=== PATIENT | male | born 1965 | race Caucasian/White ===

== ENCOUNTER 2018-02-05 18:39 | Observation (INO) | payer OTHER ==
[2018-02-05 19:03] VITALS: BMI 35.5
--- NOTE | 2018-02-05 20:28 | ED PDOC ---
Arrival/HPI <Jonathan Phan - Last Filed: 02/05/18 23:06> - General Historian: Patient <Caron Clark - Last Filed: 02/06/18 02:03> - General Chief Complaint: ENT Problem Time Seen by Provider: 02/05/18 19:21 - History of Present Illness Narrative History of Present Illness (Text): 02/05/18 20:22 52yr old male presents today with feeling like something is stuck on his throat since monday after eating fish. pt states he feels as though something is blocking the throat. pt states if he tries to eat it feels as if the food gets stuck while swallowing and then eventually goes down. pt states similar symptoms occur with fluids. no dizziness or weakness. no fever/chills. no abdominal pain. no other complaints. (Caron Clark) Past Medical History - Provider Review Nursing Documentation Reviewed: Yes - Travel History Have you recently traveled outside [place] w/in the past 3 mons?: No - Tetanus Immunization Tetanus Immunization: Unknown - Cardiac Hx Cardiac Disorders: No - Pulmonary Hx Respiratory Disorders: No - Neurological Hx Neurological Disorder: No - HEENT Hx HEENT Disorder: No - Renal Hx Renal Disorder: No - Endocrine/Metabolic Hx Endocrine Disorders: No - Hematological/Oncological Hx Blood Disorders: No - Integumentary Hx Dermatological Disorder: No - Musculoskeletal/Rheumatological Hx Musculoskeletal Disorders: No - Gastrointestinal Hx Gastrointestinal Disorders: No - Genitourinary/Gynecological Hx Genitourinary Disorders: No - Psychiatric Hx Psychophysiologic Disorder: No Hx Substance Use: No <Caron Clark - Last Filed: 02/06/18 02:03> Family/Social History - Physician Review Nursing Documentation Reviewed: Yes Family/Social History: Unknown Family HX Smoking Status: Never Smoked Hx Alcohol Use: No Hx Substance Use: No <Caron Clark - Last Filed: 02/06/18 02:03> Allergies/Home Meds <Jonathan Phan - Last Filed: 02/05/18 23:06> <Caron Clark - Last Filed: 02/06/18 02:03> Allergies/Adverse Reactions: Allergies No Known Allergies Allergy (Verified 02/05/18 19:02) Home Medications: Home Meds Medication Instructions Recorded Confirmed No Known Home Med 02/05/18 02/05/18 Review of Systems - Review of Systems Constitutional: absent: Fatigue, Fevers Respiratory: absent: SOB, Cough Cardiovascular: absent: Palpitations, Syncope Gastrointestinal: absent: Abdominal Pain, Constipation, Diarrhea, Nausea, Vomiting Genitourinary Male: absent: Dysuria, Frequency, Hematuria Musculoskeletal: absent: Arthralgias Skin: absent: Rash, Pruritis Neurological: absent: Headache, Dizziness Psychiatric: absent: Anxiety, Depression, Suicidal Ideation <Caron Clark - Last Filed: 02/06/18 02:03> Physical Exam Vital Signs Reviewed: Yes Temperature: Afebrile Blood Pressure: Hypertensive Pulse: Regular Respiratory Rate: Normal Appearance: Positive for: Well-Appearing, Non-Toxic, Comfortable Pain Distress: None Mental Status: Positive for: Alert and Oriented X 3 - Systems Exam Head: Present: Atraumatic Mouth: Present: Moist Mucous Membranes, Normal Lips, Normal Tounge. No: Drooling, Trismus Pharnyx: Present: Normal. No: ERYTHEMA, EXUDATE, TONSILS ENLARGED, Peritonsilar Swelling, Uvular Deviation, Muffled/Hoarse Voice Nose (External): Present: Atraumatic Nose (Internal): Present: Normal Inspection Neck: Present: Normal Range of Motion, Trachea Midline. No: Lymphadenopathy Respiratory/Chest: Present: Clear to Auscultation, Good Air Exchange. No: Respiratory Distress, Accessory Muscle Use Cardiovascular: Present: Regular Rate and Rhythm, Normal S1, S2. No: Murmurs Abdomen: No: Tenderness, Rebound, Guarding Skin: Present: Warm, Dry, Normal Color. No: Rashes Psychiatric: Present: Alert, Oriented x 3 <Caron Clark - Last Filed: 02/06/18 02:03> Vital Signs Temp Pulse Resp BP Pulse Ox 02/06/18 01:46 98.3 F 65 18 138/77 100 02/05/18 23:00 80 18 142/87 100 02/05/18 19:03 97.9 F 73 19 159/90 H 98 02/05/18 19:02 97.9 F 76 19 159/90 H 98 Medical Decision Making <Jonathan Phan - Last Filed: 02/05/18 23:06> <Caron Clark - Last Filed: 02/06/18 02:03> ED Course and Treatment: 02/05/18 20:25 52yr old male with Foreign body sensation and dysphagia pt tolerating his secretions; no distress. stable vitals. will do ct of neck; ct soft tissue neck: FINDINGS: Nasopharynx: There is prominence of the adenoids within the posterior nasopharynx. Oropharynx: Calcifications identified within the bilateral palatine tonsils. There is narrowing of the airway at this level, without significant swelling of the palatine tonsils. No peritonsillar abscess is visualized. Hypopharynx: There is effacement of the bilateral piriform sinuses, with mild wall thickening on the right side. This may be inflammatory, although additional pathology cannot be excluded. Larynx: Normal epiglottis. Trachea: There is deviation of the trachea to the right. Retropharyngeal space: No acute abnormality. Submandibular/parotid glands: Glands are normal in size. Thyroid: No enlarged or calcified nodules. Bones/joints: There is decreased aeration of the bilateral vallecula, with hypertrophic changes involving the lingual tonsils. There is a mild decrease in height of the C6 vertebral body, consistent with a compression fracture. The acuity of this finding is indeterminate. There is straightening of the lordotic curvature of the cervical spine. Spondylosis is identified at multiple cervical levels. There is mild anterolisthesis of C7 on T1. Vasculature: Mild atherosclerotic changes. Lymph nodes: Small menisci lymph nodes are identified, without significant mediastinal lymphadenopathy. The mediastinum is incompletely visualized. Mildly enlarged level II cervical lymph nodes are visualized bilaterally. On the right side, this measures 1.5 x 0.9 cm. Additional small cervical lymph nodes are visualized. Sinuses: There is mucosal thickening with a mucous retention cyst or polyp in the right sphenoid sinus and left frontal sinus. Mucosal thickening is identified of the right frontal sinus. There is opacification of ethmoid air cells bilaterally. Mucosal thickening is identified of the bilateral maxillary sinuses, with a mucous retention cyst or polyp in the right maxillary sinus. Lung apices: Mild patchy groundglass density is identified within the visualized lungs bilaterally. Other: No hyperdense foreign body is identified within the visualized airway. IMPRESSION: 1. There is decreased aeration of the bilateral vallecula, with hypertrophic changes involving the lingual tonsils. 2. Calcifications identified within the bilateral palatine tonsils. There is narrowing of the airway at this level. 3. There is effacement of the bilateral piriform sinuses, with mild wall thickening on the right side. This may be inflammatory, although additional pathology cannot be excluded. This can be further evaluated with upper endoscopy. 4. There is deviation of the trachea to the right. 5. There is prominence of the adenoids within the posterior nasopharynx. 6. Paranasal sinus disease is noted above. 7. There is a mild decrease in height of the C6 vertebral body, consistent with a compression fracture. The acuity of this finding is indeterminate. Clinical correlation is recommended. 8. Mildly enlarged level II cervical lymph nodes are visualized bilaterally. 9. Incidental/non-acute findings are described above. pt was seen and evaluated by ENT dr. bella in the ER: he advised CT of chest with IV contrast and to include up to the level of the thyroid with IV contrast for evaluation of tracheal deviation on CT with dysphasia and GI and pulm consult. ct chest with IV contrast ordered; I spoke with cable technician to do ct of chest but scan slightly higher to include the thyroid/clavicle per dr. bellas request. ct chest; 02/06/18 01:46 FINDINGS: Nasopharynx: The nasopharynx is incompletely visualized. Oropharynx: There are calcifications within the bilateral palatine tonsils, without significant narrowing of the airway. This is an improvement compared to the prior study. No significant swelling of the palatine tonsils. No peritonsillar abscess. Mild hypertrophic changes are visualized of the lingual tonsils, without effacement of the valleculae. There is improved aeration of the valleculae compared to the prior study. Hypopharynx: There is effacement of the bilateral piriform sinuses. Larynx: Normal epiglottis. Trachea: No acute abnormality. Retropharyngeal space: No acute abnormality. Submandibular/parotid glands: Glands are normal in size. Thyroid: No enlarged or calcified nodules. Bones/joints: There is a mild decrease in height of the C6 vertebral body, consistent with a compression fracture. The acuity of this finding is indeterminate. Spondylosis is visualized at multiple cervical levels. There is mild reversal of the lordotic curvature of the cervical spine. Vasculature: There is atherosclerotic calcification of the extracranial carotid arteries. Lymph nodes: Mild enlarged level II cervical lymph nodes are seen bilaterally, nonspecific as to etiology. Sinuses: There is opacification of the visualized maxillary sinuses. Lung apices: Unremarkable as visualized. IMPRESSION: 1. There are calcifications is within the bilateral palatine tonsils, without significant narrowing of the airway. This is an improvement compared to the prior study. 2. Mild enlarged level II cervical lymph nodes are seen bilaterally, nonspecific as to etiology. 3. Mild hypertrophic changes are visualized of the lingual tonsils, without effacement of the valleculae. There is improved aeration of the valleculae compared to the prior study. 4. There is a mild decrease in height of the C6 vertebral body, consistent with a compression fracture. The acuity of this finding is indeterminate. Clinical correlation is recommended. 5. Additional CT findings described above. CT Chest With Intravenous Contrast FINDINGS: Lungs: There is no confluent infiltrate. No lung mass or dominant lung nodule is visualized. The lung bases extend out of the [id number] of this study. Pleural space: No pneumothorax. No significant effusion. Heart: A small amount of fluid is in the superior pericardial recess. Bones/joints: Hypertrophic degenerative changes are noted within the spine. Soft tissues: There is right-sided gynecomastia. Vasculature: No thoracic aortic aneurysm. Lymph nodes: Small mediastinal lymph nodes are visualized, without significant lymphadenopathy. IMPRESSION: 1. There is no confluent infiltrate. 2. Small mediastinal lymph nodes are visualized, without significant lymphadenopathy. 3. Incidental/non-acute findings are described above. 02/06/18 01:57 case was discussed with dr. Mathew in depth; pt is to be kept NPO and will have endoscopy in the AM. case discussed with dr. Kvng Rojas; accepts admission All results were discussed in depth with the patient. Patient was advised to remain without food or drink until evaluation by the GI specialist in the morning. all aspects of this case were discussed the attending of record. impression: dyphasia, abnormal ct of neck admit to med/surg with GI consult. (Caron Clark) - Lab Interpretations Lab Results: 02/05/18 22:20 02/05/18 22:15 Lab Results 02/05/18 22:20: WBC 10.3, RBC 4.76, Hgb 14.9, Hct 43.6, MCV 91.6, MCH 31.3, MCHC 34.2, RDW 12.6, Plt Count 291, MPV 11.0, Gran % 50.9, Lymph % (Auto) 35.2 H , Ashley % (Auto) 9.6 H, Eos % (Auto) 3.4, Baso % (Auto) 0.9, Gran # 5.22, Lymph # (Auto) 3.6 H, Ashley # (Auto) 1.0 H, Eos # (Auto) 0.4, Baso # (Auto) 0.09 02/05/18 22:20: PT 10.6, INR 0.93, APTT 29.3 02/05/18 22:15: Sodium 143, Potassium 4.2, Chloride 106, Carbon Dioxide 29, Anion Gap 12, BUN 20, Creatinine 0.9, Est GFR ( Amer) > 60, Est GFR (Non- Af Amer) > 60, Random Glucose 97, Calcium 9.5, Total Bilirubin 0.2, AST 23, ALT 33, Alkaline Phosphatase 67, Total Protein 6.8, Albumin 4.0, Globulin 2.9, Albumin/Globulin Ratio 1.4 - RAD Interpretation Radiology Orders: 02/05/18 19:43 NECK SOFT TISSUE W/O CONTRAST [CT] Stat 02/05/18 21:48 CHEST PORTABLE [RAD] Stat 02/05/18 23:17 NECK,CHEST WITH CONTRAST [CT] Stat - PA / SHIP MATE / Resident Statement / has reviewed & agrees with the documentation as recorded. / has examined the patient and agrees with the treatment plan. <Jonathan Phan - Last Filed: 02/05/18 23:06> Disposition/Present on Arrival <Jonathan Phan - Last Filed: 02/05/18 23:06> - Present on Arrival Any Indicators Present on Arrival: No History of DVT/PE: No History of Uncontrolled Diabetes: No Urinary Catheter: No History of Decub. Ulcer: No History Surgical Site Infection Following: None - Disposition Have Diagnosis and Disposition been Completed?: Yes Disposition Time: 02:00 Patient Plan: Observation <Caron Clark - Last Filed: 02/06/18 02:03> - Disposition Diagnosis: Dysphagia, Cervical compression fracture Disposition: HOSPITALIZED Patient Problems: Current Active Problems Problem Status Onset Cervical compression fracture Acute Dysphagia Acute Condition: FAIR Referrals: [facility], [Primary Care Provider] - Follow up with primary Forms: [employer] (Hungarian)
--- NOTE | 2018-02-05 21:36 | CT ---
EXAM: CT Neck Without Intravenous Contrast EXAM DATE/TIME: 02/05/2018 7:43 PM CLINICAL HISTORY: The patient age is 52 years old and is male; Signs and symptoms; Dysphagia / difficulty swallowing; Additional info: Fb sensation/ difficulty swallowing Facility exam id and description: Ct necks neck soft tissue w/o contrast TECHNIQUE: Axial computed tomography images of the neck without intravenous contrast. All CT scans at this facility use one or more dose reduction techniques, viz.: automated exposure control; ma/kV adjustment per patient size (including targeted exams where dose is matched to indication; i.e. head); or iterative reconstruction technique. Coronal and sagittal reformatted images were created and reviewed. COMPARISON: No relevant prior studies available. FINDINGS: Nasopharynx: There is prominence of the adenoids within the posterior nasopharynx. Oropharynx: Calcifications identified within the bilateral palatine tonsils. There is narrowing of the airway at this level, without significant swelling of the palatine tonsils. No peritonsillar abscess is visualized. Hypopharynx: There is effacement of the bilateral piriform sinuses, with mild wall thickening on the right side. This may be inflammatory, although additional pathology cannot be excluded. Larynx: Normal epiglottis. Trachea: There is deviation of the trachea to the right. Retropharyngeal space: No acute abnormality. Submandibular/parotid glands: Glands are normal in size. Thyroid: No enlarged or calcified nodules. Bones/joints: There is decreased aeration of the bilateral vallecula, with hypertrophic changes involving the lingual tonsils. There is a mild decrease in height of the C6 vertebral body, consistent with a compression fracture. The acuity of this finding is indeterminate. There is straightening of the lordotic curvature of the cervical spine. Spondylosis is identified at multiple cervical levels. There is mild anterolisthesis of C7 on T1. Vasculature: Mild atherosclerotic changes. Lymph nodes: Small menisci lymph nodes are identified, without significant mediastinal lymphadenopathy. The mediastinum is incompletely visualized. Mildly enlarged level II cervical lymph nodes are visualized bilaterally. On the right side, this measures 1.5 x 0.9 cm. Additional small cervical lymph nodes are visualized. Sinuses: There is mucosal thickening with a mucous retention cyst or polyp in the right sphenoid sinus and left frontal sinus. Mucosal thickening is identified of the right frontal sinus. There is opacification of ethmoid air cells bilaterally. Mucosal thickening is identified of the bilateral maxillary sinuses, with a mucous retention cyst or polyp in the right maxillary sinus. Lung apices: Mild patchy groundglass density is identified within the visualized lungs bilaterally. Other: No hyperdense foreign body is identified within the visualized airway. IMPRESSION: 1. There is decreased aeration of the bilateral vallecula, with hypertrophic changes involving the lingual tonsils. 2. Calcifications identified within the bilateral palatine tonsils. There is narrowing of the airway at this level. 3. There is effacement of the bilateral piriform sinuses, with mild wall thickening on the right side. This may be inflammatory, although additional pathology cannot be excluded. This can be further evaluated with upper endoscopy. 4. There is deviation of the trachea to the right. 5. There is prominence of the adenoids within the posterior nasopharynx. 6. Paranasal sinus disease is noted above. 7. There is a mild decrease in height of the C6 vertebral body, consistent with a compression fracture. The acuity of this finding is indeterminate. Clinical correlation is recommended. 8. Mildly enlarged level II cervical lymph nodes are visualized bilaterally. 9. Incidental/non-acute findings are described above.
[2018-02-05 22:37] LABS: BASO # 0.09 K/mm3 (0.0-2.0); BASO % 0.9 % (0.0-3.0); EOS # 0.4 (0.0-0.7); EOS % 3.4 % (1.5-5.0); GRAN # 5.22 (1.4-6.5); GRAN % 50.9 % (50.0-68.0); HEMOGLOBIN 14.9 g/dL (14.0-18.0); LYMPH # 3.6 (1.2-3.4); LYMPH % 35.2 % (22.0-35.0); MEAN CELL VOLUME 91.6 fl (80.0-105.0); MEAN CORPUSCULAR HEMOGLOBIN 31.3 pg (25.0-35.0); MEAN CORPUSCULAR HGB CONC 34.2 g/dl (31.0-37.0); MONO % 9.6 % (1.0-6.0); RBC 4.76 10^6/uL (3.5-6.1); RED CELL DISTRIBUTION WIDTH 12.6 % (11.5-14.5); WHITE BLOOD COUNT 10.3 10^3/ul (4.5-11.0)
[2018-02-05 22:41] LABS: ALB/GLOB RATIO 1.4 (1.1-1.8); ALT/SGPT 33 U/L (7-56); AST/SGOT 23 U/L (17-59); BLOOD UREA NITROGEN 20 mg/dL (7-21); CALCIUM 9.5 mg/dL (8.4-10.5); GFR AFRICAN-AMERICAN > 60; GFR NON-AFRICAN AMERICAN > 60
[2018-02-05 22:52] LABS: INR 0.93 (0.93-1.08); PARTIAL THROMBOPLASTIN TIME 29.3 Seconds (25.1-36.5); PROTHROMBIN TIME 10.6 SECONDS (9.4-12.5)
[2018-02-05] MEDS ORDERED: Iohexol 350 MG/100 ML VIAL ONE (23:25)
--- NOTE | 2018-02-06 01:02 | CT ---
EXAM: CT Neck With Intravenous Contrast CLINICAL HISTORY: The patient age is 52 years old and is male; Signs and symptoms; Other: Difficulty swallowing; Dysphagia / difficulty swallowing; Additional info: Difficulty swallowingtracheal deviation on neck CT Facility exam id and description: Ct neckchec neck, chest with contrast TECHNIQUE: Axial computed tomography images of the neck with intravenous contrast. All CT scans at this facility use one or more dose reduction techniques, viz.: automated exposure control; ma/kV adjustment per patient size (including targeted exams where dose is matched to indication; i.e. head); or iterative reconstruction technique. Coronal and sagittal reformatted images were created and reviewed. CONTRAST: 96 mL of OMNI 350 administered intravenously. COMPARISON: CT - NECK SOFT TISSUE W/O CONTRAST 2018-02-05 20:32 FINDINGS: Nasopharynx: The nasopharynx is incompletely visualized. Oropharynx: There are calcifications within the bilateral palatine tonsils, without significant narrowing of the airway. This is an improvement compared to the prior study. No significant swelling of the palatine tonsils. No peritonsillar abscess. Mild hypertrophic changes are visualized of the lingual tonsils, without effacement of the valleculae. There is improved aeration of the valleculae compared to the prior study. Hypopharynx: There is effacement of the bilateral piriform sinuses. Larynx: Normal epiglottis. Trachea: No acute abnormality. Retropharyngeal space: No acute abnormality. Submandibular/parotid glands: Glands are normal in size. Thyroid: No enlarged or calcified nodules. Bones/joints: There is a mild decrease in height of the C6 vertebral body, consistent with a compression fracture. The acuity of this finding is indeterminate. Spondylosis is visualized at multiple cervical levels. There is mild reversal of the lordotic curvature of the cervical spine. Vasculature: There is atherosclerotic calcification of the extracranial carotid arteries. Lymph nodes: Mild enlarged level II cervical lymph nodes are seen bilaterally, nonspecific as to etiology. Sinuses: There is opacification of the visualized maxillary sinuses. Lung apices: Unremarkable as visualized. IMPRESSION: 1. There are calcifications is within the bilateral palatine tonsils, without significant narrowing of the airway. This is an improvement compared to the prior study. 2. Mild enlarged level II cervical lymph nodes are seen bilaterally, nonspecific as to etiology. 3. Mild hypertrophic changes are visualized of the lingual tonsils, without effacement of the valleculae. There is improved aeration of the valleculae compared to the prior study. 4. There is a mild decrease in height of the C6 vertebral body, consistent with a compression fracture. The acuity of this finding is indeterminate. Clinical correlation is recommended. 5. Additional CT findings described above. EXAM: CT Chest With Intravenous Contrast EXAM DATE/TIME: 02/05/2018 11:17 PM CLINICAL HISTORY: The patient age is 52 years old and is male; Signs and symptoms; Other: Difficulty swallowing; Dysphagia / difficulty swallowing; Additional info: Difficulty swallowingtracheal deviation on neck CT Facility exam id and description: Ct neckchec neck, chest with contrast TECHNIQUE: Axial computed tomography images of the chest with intravenous contrast. All CT scans at this facility use one or more dose reduction techniques, viz.: automated exposure control; ma/kV adjustment per patient size (including targeted exams where dose is matched to indication; i.e. head); or iterative reconstruction technique. Coronal and sagittal reformatted images were created and reviewed. CONTRAST: 96 mL of OMNI 350 administered intravenously. COMPARISON: CT - NECK SOFT TISSUE W/O CONTRAST 2018-02-05 20:32 FINDINGS: Lungs: There is no confluent infiltrate. No lung mass or dominant lung nodule is visualized. The lung bases extend out of the [id number] of this study. Pleural space: No pneumothorax. No significant effusion. Heart: A small amount of fluid is in the superior pericardial recess. Bones/joints: Hypertrophic degenerative changes are noted within the spine. Soft tissues: There is right-sided gynecomastia. Vasculature: No thoracic aortic aneurysm. Lymph nodes: Small mediastinal lymph nodes are visualized, without significant lymphadenopathy. IMPRESSION: 1. There is no confluent infiltrate. 2. Small mediastinal lymph nodes are visualized, without significant lymphadenopathy. 3. Incidental/non-acute findings are described above.
[2018-02-06] MEDS ORDERED: Sodium Chloride 0.9% 1,000 ML IV SCH (02:30)
--- NOTE | 2018-02-06 02:40 | CP.PCM.HP ---
History of Present Illness - History of Present Illness History of Present Illness: Víctor Edgarguis PGY1 H&P Note for Hospitalist Service cc: trouble swallowing x4 days Mr. Brooks is a 52 yo Faroese male with a PMH of GERD and obesity who presents with a feeling of a lump in the back of the back of his throat when he eats and a feeling of the food/fluids going slowly down his throat until it's in his stomach. The patient states he is nauseous but has not vomited; he does complain of a cough and some shortness of breath. He states that his symptoms have been constant since Monday after eating fish, and have not progressed and that there's no difference between solid foods and liquids; he is also experiencing burping. He normally takes Zantac which has not helped, and nothing he noticed exacerbates it or improves it. The patient denies having an episode like this before, however, he does state that he has GERD and that he cannot eat too late in the night otherwise he experiences severe reflux. He also states that many years ago, he used to drink significant amounts of alcohol that caused him what seems like esophagitis and he could not tolerate anything more than water for several years. He has cut his drinking since then and has not had severe episodes like that since. The patient states that his mother from colon cancer which prompted him to have colonoscopy done in [place], but he's unsure of results. Patient denies recent weight loss, fevers/chills, recent illness, vomiting, bowel habit changes, chest pain, weakness, numbness/tingling in his extremities. 12-pt ROS was reviewed and is otherwise unremarkable. PMD: none PMH: as above PSH: none Meds: Zantac NKDA SHx: 0.5pk/day for many years, occasional ETOH, denies illicit substance use, lives w/ friend, unemployed FHx: mother: colon cancer Present on Admission - Present on Admission Any Indicators Present on Admission: No Review of Systems - Review of Systems All systems: reviewed and no additional remarkable complaints except (as per HPI ) Past Patient History - Tetanus Immunizations Tetanus Immunization: Unknown - Past Medical History & Family History Past Medical History?: Yes - Past Social History Smoking Status: Heavy Smoker > 10 Cigarettes Daily Alcohol: Occasional Drugs: Denies Home Situation {Lives}: Friends - CARDIAC Hx Cardiac Disorders: No - PULMONARY Hx Respiratory Disorders: No - NEUROLOGICAL Hx Neurological Disorder: No - HEENT Hx HEENT Problems: No - RENAL Hx Chronic Kidney Disease: No - ENDOCRINE/METABOLIC Hx Endocrine Disorders: No - HEMATOLOGICAL/ONCOLOGICAL Hx Blood Disorders: No - INTEGUMENTARY Hx Dermatological Problems: No - MUSCULOSKELETAL/RHEUMATOLOGICAL Hx Musculoskeletal Disorders: No - GASTROINTESTINAL Hx Gastritis: Yes Hx Gastroesophageal Reflux: Yes - GENITOURINARY/GYNECOLOGICAL Hx Genitourinary Disorders: No - PSYCHIATRIC Hx Psychophysiologic Disorder: No Hx Substance Use: No - SURGICAL HISTORY Hx Surgeries: No Meds Allergies/Adverse Reactions: Allergies Allergy/AdvReac Type Severity Reaction Status Date / Time No Known Allergies Allergy Verified 02/05/18 19:02 Physical Exam - Constitutional Appears: Well, Non-toxic, No Acute Distress - Head Exam Head Exam: ATRAUMATIC, NORMAL INSPECTION - Eye Exam Eye Exam: EOMI, Normal appearance, PERRL - ENT Exam ENT Exam: Mucous Membranes Moist, Normal Oropharynx Additional comments: no upper airway obstruction noted no pharyngeal mass noted no tonsil exudates or enlargement noted - Neck Exam Neck exam: Positive for: Normal Inspection. Negative for: Thyromegaly Additional comments: no strider noted on auscultation - Respiratory Exam Respiratory Exam: Clear to Auscultation Bilateral, NORMAL BREATHING PATTERN. absent: Rales, Rhonchi, Wheezes, Respiratory Distress, Stridor - Cardiovascular Exam Cardiovascular Exam: RRR, +S1, +S2. absent: JVD, Systolic Murmur - GI/Abdominal Exam GI & Abdominal Exam: Normal Bowel Sounds, Soft. absent: Distended, Tenderness Additional comments: obese - Extremities Exam Extremities exam: Positive for: full ROM, normal inspection. Negative for: pedal edema - Back Exam Back exam: NORMAL INSPECTION - Neurological Exam Neurological exam: Alert, CN II-XII Intact, Oriented x3 - Psychiatric Exam Psychiatric exam: Normal Affect, Normal Mood - Skin Skin Exam: Normal Color, Warm Results - Vital Signs Recent Vital Signs: Last Vital Signs Temp 98.3 F 02/06/18 01:46 Pulse 65 02/06/18 01:46 Resp 18 02/06/18 01:46 BP 138/77 02/06/18 01:46 Pulse Ox 100 02/06/18 01:46 - Labs Result Diagrams: 02/05/18 22:20 02/05/18 22:15 Assessment & Plan - Assessment and Plan (Free Text) Assessment: 52 yo Faroese male with a PMH of GERD (a/w alcohol-induced esophagitis) and obesity who presents with odynophagia and globus x4 days after having fish. Patient is in no respiratory distress currently. CT Neck showed some possible tracheal deviation, and patient was evaluated by ENT in ED, and recommended no immediate intervention. GI is consulted and recommending patient to be NPO for endoscopy in morning. Patient is otherwise stable. Plan: 1. Odynophagia likely 2/2 gastritis vs diabetic gastroparesis, r/o foreign body (fish bone) - CT neck showed hypertrophic changes involving the lingual tonsils, calcifications identified within the bilateral palatine tonsils with narrowing of the airway at this level. Effacement of the bilateral piriform sinuses, with mild wall thickening on the right side. There is deviation of the trachea to the right. There is prominence of the adenoids within the posterior nasopharynx. C6 compression fracture. - CT Chest/Neck as requested by ENT showed bilateral palatine tonsils, without significant narrowing of the airway. Mild enlarged level II cervical lymph nodes are seen bilaterally. Mild hypertrophic changes are visualized of the lingual tonsils. - patient not in any respiratory distress at this time - will keep patient NPO - IV PTX ordered - GI consulted, Dr. Mathew plans for morning EGD - vitamin B12, TSH and A1C ordered to evaluate for etiology - AM CXR ordered - NS 100 - aspiration precautions PTX/SCDs for GI/DVT ppx Patient was seen, examined and discussed with attending, Dr. Raghu Nelson PGY1
[2018-02-06 07:38] LABS: BASO # 0.05 K/mm3 (0.0-2.0); BASO % 0.6 % (0.0-3.0); EOS # 0.4 (0.0-0.7); EOS % 4.9 % (1.5-5.0); GRAN # 4.51 (1.4-6.5); HEMOGLOBIN 14.3 g/dL (14.0-18.0); LYMPH # 3.1 (1.2-3.4); LYMPH % 34.1 % (22.0-35.0); MEAN CELL VOLUME 91.2 fl (80.0-105.0); MEAN CORPUSCULAR HEMOGLOBIN 30.6 pg (25.0-35.0); MEAN CORPUSCULAR HGB CONC 33.6 g/dl (31.0-37.0); MEAN PLATELET VOLUME 10.9 fl (7.0-11.0); MONO # 0.9 (0.1-0.6); MONO % 10.4 % (1.0-6.0); RBC 4.67 10^6/uL (3.5-6.1); RED CELL DISTRIBUTION WIDTH 12.7 % (11.5-14.5)
[2018-02-06 08:07] LABS: ALB/GLOB RATIO 1.3 (1.1-1.8); ALBUMIN 3.5 g/dL (3.0-4.8); ALT/SGPT 32 U/L (7-56); AST/SGOT 21 U/L (17-59); BLOOD UREA NITROGEN 16 mg/dL (7-21); CALCIUM 9.1 mg/dL (8.4-10.5); GFR AFRICAN-AMERICAN > 60; GFR NON-AFRICAN AMERICAN > 60
--- NOTE | 2018-02-06 08:25 | RAD ---
HISTORY: fb sensation COMPARISON: No prior. FINDINGS: LUNGS: No active pulmonary disease. PLEURA: No significant pleural effusion identified, no pneumothorax apparent. CARDIOVASCULAR: Mild cardiomegaly difficult to exclude. No pulmonary derangement OSSEOUS STRUCTURES: . Frontal technique limits evaluation. VISUALIZED UPPER ABDOMEN: Normal. OTHER FINDINGS: None. IMPRESSION: No acute infiltrate or pleural effusion bilaterally. Mild cardiomegaly not completely excluded though not proven either. Please see discussion above.
--- NOTE | 2018-02-06 09:17 | RAD ---
HISTORY: tracheal deviation COMPARISON: 02/05/2018 FINDINGS: LUNGS: No active pulmonary disease. PLEURA: No significant pleural effusion identified, no pneumothorax apparent. CARDIOVASCULAR: Normal. OSSEOUS STRUCTURES: No significant abnormalities. VISUALIZED UPPER ABDOMEN: Normal. OTHER FINDINGS: None. IMPRESSION: No active disease.
--- NOTE | 2018-02-06 10:24 | CARD ---
APPROVED REPORT EKG Measurement Heart [id number] <Conclusion> Sinus bradycardia Otherwise normal ECG
[2018-02-06] MEDS ORDERED: Propofol 10 mg/ml Inj (20 ML) ONE (11:50)
[2018-02-06] MEDS ORDERED: Influenza Vaccine 60 mcg/0.5 mL SYR (4YR UP) IM ONE (12:53)
[2018-02-06 13:35] VITALS: O2SAT 99
[2018-02-06 16:05] VITALS: BP 120/74; PULSE 56; RESP 20; TEMP 98.2
--- NOTE | 2018-02-06 20:48 | CON ---
DATE: 02/06/2018 GASTROENTEROLOGY CONSULTATION REQUESTING PHYSICIAN: Dr. Rojas. REASON FOR CONSULTATION: I have been asked to see this 52-year-old Occitan male who comes to the hospital with pain and difficulty swallowing in the back of his throat with both solids and liquids. This started apparently 4 days ago on 02/03/2018, after patient ate fish. He does not believe that he swallowed a fish bone. He does have a history of GERD. He apparently has had an endoscopy and colonoscopy in [place]. His mother from colon cancer. He denies any fevers, chills, nausea, or vomiting. The patient states that he has a lump in the back of his throat and develops nausea when he tries to eat. He again feels food sticking in his throat as he attempts to swallow. CT scan of the soft tissue of the neck and chest did not reveal any abnormalities in the esophagus. He did have some calcifications of the tonsils as well as some mildly enlarged cervical lymph nodes. He was also noted to have some small mediastinal lymph nodes. PAST MEDICAL HISTORY: Unremarkable. SOCIAL HISTORY: He smokes half pack of cigarette per day for many years. He consumes alcohol on a social basis. FAMILY HISTORY: Notable for colon cancer. REVIEW OF SYSTEMS: A 14-point review of systems is positive for pain and difficulty swallowing in his throat. PHYSICAL EXAMIANTION: VITAL SIGNS: Reveal temperature of 98.7, blood pressure 133/78, and heart rate 64. HEENT: Reveal sclerae to be white, conjunctivae pink. Oral mucosa is normal. There are no lesions in his throat. NECK: Supple. There is no lymphadenopathy. No mass. CHEST: Reveals lungs to be clear. HEART: Reveals a regular rate and rhythm. ABDOMEN: Soft, nontender, obese. No mass. EXTREMITIES: Show no edema. LABORATORY DATA: Reveals white blood cell count 9, hemoglobin 14.3. Chemistries reveal normal electrolytes. IMPRESSION: Acute onset of odynophagia and oropharyngeal dysphagia. Soft tissue CT of the neck and chest showed no acute abnormalities with respect to the esophagus. There is some nonspecific cervical and mediastinal lymphadenopathy. RECOMMENDATIONS: I will schedule the patient for an upper endoscopy for this morning. Duy Mathew MD
--- NOTE | 2018-02-10 13:49 | CP.PCM.DIS ---
<Dante Lima - Last Filed: 02/10/18 13:45> Provider - Provider Date of Admission: 02/06/18 02:02 Attending physician: Phu Rojas MD Consults: GI: [place] Time Spent in preparation of Discharge (in minutes): 40 Hospital Course - Lab Results Lab Results: Most Recent Lab Values WBC 9.0 10^3/ul (4.5-11.0) 02/06/18 07:00 RBC 4.67 10^6/uL (3.5-6.1) 02/06/18 07:00 Hgb 14.3 g/dL (14.0-18.0) 02/06/18 07:00 Hct 42.6 % (42.0-52.0) 02/06/18 07:00 MCV 91.2 fl (80.0-105.0) 02/06/18 07:00 MCH 30.6 pg (25.0-35.0) 02/06/18 07:00 MCHC 33.6 g/dl (31.0-37.0) 02/06/18 07:00 RDW 12.7 % (11.5-14.5) 02/06/18 07:00 Plt Count 273 10^3/uL (120.0-450.0) 02/06/18 07:00 MPV 10.9 fl (7.0-11.0) 02/06/18 07:00 Gran % 50.0 % (50.0-68.0) 02/06/18 07:00 Lymph % (Auto) 34.1 % (22.0-35.0) 02/06/18 07:00 [place] % (Auto) 10.4 % (1.0-6.0) H 02/06/18 07:00 Eos % (Auto) 4.9 % (1.5-5.0) 02/06/18 07:00 Baso % (Auto) 0.6 % (0.0-3.0) 02/06/18 07:00 Gran # 4.51 (1.4-6.5) 02/06/18 07:00 Lymph # (Auto) 3.1 (1.2-3.4) 02/06/18 07:00 [place] # (Auto) 0.9 (0.1-0.6) H 02/06/18 07:00 Eos # (Auto) 0.4 (0.0-0.7) 02/06/18 07:00 Baso # (Auto) 0.05 K/mm3 (0.0-2.0) 02/06/18 07:00 PT 10.6 SECONDS (9.4-12.5) 02/05/18 22:20 INR 0.93 (0.93-1.08) 02/05/18 22:20 APTT 29.3 Seconds (25.1-36.5) 02/05/18 22:20 Sodium 143 mmol/L (132-148) 02/06/18 07:00 Potassium 4.0 mmol/L (3.6-5.0) 02/06/18 07:00 Chloride 107 mmol/L (98-107) 02/06/18 07:00 Carbon Dioxide 29 mmol/L (21-33) 02/06/18 07:00 Anion Gap 10 (10-20) 02/06/18 07:00 BUN 16 mg/dL (7-21) 02/06/18 07:00 Creatinine 0.7 mg/dl (0.8-1.5) L 02/06/18 07:00 Est GFR ( Amer) > 60 02/06/18 07:00 Est GFR (Non-Af Amer) > 60 02/06/18 07:00 Random Glucose 103 mg/dL (70-110) 02/06/18 07:00 Hemoglobin A1c 5.6 % (4.2-6.5) 02/06/18 07:00 Calcium 9.1 mg/dL (8.4-10.5) 02/06/18 07:00 Magnesium 2.0 mg/dL (1.7-2.2) 02/06/18 07:00 Total Bilirubin 0.3 mg/dL (0.2-1.3) 02/06/18 07:00 AST 21 U/L (17-59) 02/06/18 07:00 ALT 32 U/L (7-56) 02/06/18 07:00 Alkaline Phosphatase 60 U/L (38-126) 02/06/18 07:00 Total Protein 6.1 g/dL (5.8-8.3) 02/06/18 07:00 Albumin 3.5 g/dL (3.0-4.8) 02/06/18 07:00 Globulin 2.6 gm/dL 02/06/18 07:00 Albumin/Globulin Ratio 1.3 (1.1-1.8) 02/06/18 07:00 Vitamin B12 259 pg/mL (239-931) 02/06/18 07:00 TSH 3rd Generation 2.36 mIU/mL (0.46-4.68) 02/06/18 07:00 HIV 1&2 Antibody Screen Negative (NEGATIVE) 02/06/18 08:30 - Hospital Course Hospital Course: 52 yo Filipino male with a PMH of GERD (a/w alcohol-induced esophagitis) and obesity who presents with odynophagia and globus for 4 days after having boneless fish. Patient was in no respiratory distress. CT Neck showed some possible tracheal deviation, and patient was evaluated by ENT in ED, and recommended no immediate intervention. GI was consulted and recommended for endoscopy which showed candidal esophagitis and chronic esophagitis among other findings. He was started and discharged on Prilosec and Difucan. Patient was discharged on 02/06/18 with instructions to follow up with GI and previously mentioned medications. He was also scheduled an appointment with [facility] at [facility] as he had no PMD. - Date & Time of H&P Date of H&P: 02/06/18 Time of H&P: 02:24 Discharge Exam - Head Exam Head Exam: ATRAUMATIC, NORMAL INSPECTION - Eye Exam Eye Exam: EOMI, Normal appearance Pupil Exam: NORMAL ACCOMODATION, PERRL - ENT Exam ENT Exam: Mucous Membranes Moist, Normal Exam - Neck Exam Neck exam: Full Rom - Respiratory Exam Respiratory Exam: Clear to PA & Lateral, NORMAL BREATHING PATTERN, UNREMARKABLE - Cardiovascular Exam Cardiovascular Exam: REGULAR RHYTHM - GI/Abdominal Exam GI & Abdominal Exam: Normal Bowel Sounds, Unremarkable - Extremities Exam Extremities exam: normal inspection - Back Exam Back exam: NORMAL INSPECTION - Neurological Exam Neurological exam: Alert, CN II-XII Intact, Normal Gait, Oriented x3, Reflexes Normal - Psychiatric Exam Psychiatric exam: Normal Affect, Normal Mood - Skin Skin Exam: Dry, Intact, Normal Color, Warm Discharge Plan - Discharge Medications Prescriptions: Fluconazole [Diflucan] 100 mg PO DAILY #14 tab Omeprazole Magnesium [Prilosec Otc] 20 mg PO BID #28 tablet. - Follow Up Plan Condition: FAIR Disposition: HOME/ ROUTINE Instructions: Thrush, Acid Reflux (Gastroesophageal Reflux Disease), Adult (DC) , Thrush (DC), Dysphagia (DC), Acid Reflux (Gastroesophageal Reflux Disease) in Adults, Fluconazole, Omeprazole Additional Instructions: Please follow up with your primary care doctor within one to two weeks for post hospitalization follow up. If you do not have a primary care doctor, please follow up with the [facility] at [facility]. Their contact information has been provided in this paperwork. Please contact Dr. Mathew, Gastroenterology, should you have any of the emergencies described to you by Dr. Mathew. Please take all medications as prescribed If your symptoms should persist or worsen, please seek emergency medical attention. Referrals: Duy Mathew MD [Staff Provider] - <Phu Rojas - Last Filed: 02/10/18 14:01> Provider - Provider Date of Admission: 02/06/18 02:02 Attending physician: Phu Rojas MD Hospital Course - Lab Results Lab Results: Most Recent Lab Values WBC 9.0 10^3/ul (4.5-11.0) 02/06/18 07:00 RBC 4.67 10^6/uL (3.5-6.1) 02/06/18 07:00 Hgb 14.3 g/dL (14.0-18.0) 02/06/18 07:00 Hct 42.6 % (42.0-52.0) 02/06/18 07:00 MCV 91.2 fl (80.0-105.0) 02/06/18 07:00 MCH 30.6 pg (25.0-35.0) 02/06/18 07:00 MCHC 33.6 g/dl (31.0-37.0) 02/06/18 07:00 RDW 12.7 % (11.5-14.5) 02/06/18 07:00 Plt Count 273 10^3/uL (120.0-450.0) 02/06/18 07:00 MPV 10.9 fl (7.0-11.0) 02/06/18 07:00 Gran % 50.0 % (50.0-68.0) 02/06/18 07:00 Lymph % (Auto) 34.1 % (22.0-35.0) 02/06/18 07:00 [place] % (Auto) 10.4 % (1.0-6.0) H 02/06/18 07:00 Eos % (Auto) 4.9 % (1.5-5.0) 02/06/18 07:00 Baso % (Auto) 0.6 % (0.0-3.0) 02/06/18 07:00 Gran # 4.51 (1.4-6.5) 02/06/18 07:00 Lymph # (Auto) 3.1 (1.2-3.4) 02/06/18 07:00 [place] # (Auto) 0.9 (0.1-0.6) H 02/06/18 07:00 Eos # (Auto) 0.4 (0.0-0.7) 02/06/18 07:00 Baso # (Auto) 0.05 K/mm3 (0.0-2.0) 02/06/18 07:00 PT 10.6 SECONDS (9.4-12.5) 02/05/18 22:20 INR 0.93 (0.93-1.08) 02/05/18 22:20 APTT 29.3 Seconds (25.1-36.5) 02/05/18 22:20 Sodium 143 mmol/L (132-148) 02/06/18 07:00 Potassium 4.0 mmol/L (3.6-5.0) 02/06/18 07:00 Chloride 107 mmol/L (98-107) 02/06/18 07:00 Carbon Dioxide 29 mmol/L (21-33) 02/06/18 07:00 Anion Gap 10 (10-20) 02/06/18 07:00 BUN 16 mg/dL (7-21) 02/06/18 07:00 Creatinine 0.7 mg/dl (0.8-1.5) L 02/06/18 07:00 Est GFR ( Amer) > 60 02/06/18 07:00 Est GFR (Non-Af Amer) > 60 02/06/18 07:00 Random Glucose 103 mg/dL (70-110) 02/06/18 07:00 Hemoglobin A1c 5.6 % (4.2-6.5) 02/06/18 07:00 Calcium 9.1 mg/dL (8.4-10.5) 02/06/18 07:00 Magnesium 2.0 mg/dL (1.7-2.2) 02/06/18 07:00 Total Bilirubin 0.3 mg/dL (0.2-1.3) 02/06/18 07:00 AST 21 U/L (17-59) 02/06/18 07:00 ALT 32 U/L (7-56) 02/06/18 07:00 Alkaline Phosphatase 60 U/L (38-126) 02/06/18 07:00 Total Protein 6.1 g/dL (5.8-8.3) 02/06/18 07:00 Albumin 3.5 g/dL (3.0-4.8) 02/06/18 07:00 Globulin 2.6 gm/dL 02/06/18 07:00 Albumin/Globulin Ratio 1.3 (1.1-1.8) 02/06/18 07:00 Vitamin B12 259 pg/mL (239-931) 02/06/18 07:00 TSH 3rd Generation 2.36 mIU/mL (0.46-4.68) 02/06/18 07:00 HIV 1&2 Antibody Screen Negative (NEGATIVE) 02/06/18 08:30 Attending/Attestation - Attestation I have personally seen and examined this patient.: Yes I have fully participated in the care of the patient.: Yes I have reviewed all pertinent clinical information, including history, physical exam and plan: Yes Notes (Text): I have seen and examined the patient with the resident. Agree with the above note dictated by the resident. Continue diflucan. Follow up in [facility] next week.
== END 2018-02-06 18:39 | disposition home or self-care (01) ==
LOC: ED 18:39 → ERH 02-06 02:02 → 5RSO 02-06 03:27
PROVIDERS: ADMIT Hospitalist; ATTEND Hospitalist
DX: K21.0 Gastro-esophageal reflux disease with esophagitis (principal); B37.81 Candidal esophagitis; R13.12 Dysphagia, oropharyngeal phase; K29.70 Gastritis, unspecified, without bleeding; M48.52XA Collapsed vertebra, not elsewhere classified, cervical region, initial encounter for fracture; E66.9 Obesity, unspecified; J39.8 Other specified diseases of upper respiratory tract; K57.10 Diverticulosis of small intestine without perforation or abscess without bleeding; F17.210 Nicotine dependence, cigarettes, uncomplicated; Z80.0 Family history of malignant neoplasm of digestive organs
CPT/HCPCS: 36415; 43239; 70492; 71045; 71260; 80053; 82607; 83036; 83735; 84443; 85025; 85610; 85730; 86703; 88305; 88312; 88342; 93005; 99285; C9113; G0378; J2704; J7040; Q9967

== ENCOUNTER 2018-06-08 17:18 | Emergency (ER) | payer OTHER ==
[2018-06-08 17:54] VITALS: BP 136/84; PULSE 88; TEMP 98.7; BMI 36.8
--- NOTE | 2018-06-08 18:03 | ED PDOC ---
Arrival/HPI - General Chief Complaint: Abnormal Skin Integrity Time Seen by Provider: 06/08/18 17:59 Historian: Patient - History of Present Illness Narrative History of Present Illness (Text): 06/08/18 17:59 Patient is a 53 year old male who denies past medical issues, and who presents to the Emergency department for erythematous rash of his right lower back and left leg. Patient reports that yesterday he noticed a rash on the right side of his back and left lower extremity with associated pruritus. He denies any allergies to medications and is unsure if he was bitten by bugs but did spend time outdoors. Patient denies fevers, chills, cough, shortness of breath, chest pain, dyspnea on exertion, abdominal pain, nausea, vomiting, diarrhea, back pain , neck pain, headache, dizziness, or any other complaint. Time/Duration: Other (approximately 15 hours ago) Symptom Onset: Sudden Symptom Course: Unchanged Context: Home Past Medical History - Provider Review Nursing Documentation Reviewed: Yes - Infectious Disease Hx of Infectious Diseases: None - Tetanus Immunization Tetanus Immunization: Unknown - Cardiac Hx Cardiac Disorders: No - Pulmonary Hx Respiratory Disorders: No - Neurological Hx Neurological Disorder: No - HEENT Hx HEENT Disorder: No - Renal Hx Renal Disorder: No - Endocrine/Metabolic Hx Endocrine Disorders: No - Hematological/Oncological Hx Blood Transfusions: No - Integumentary Hx Dermatological Disorder: No - Musculoskeletal/Rheumatological Hx Falls: No - Gastrointestinal Hx Gastroesophageal Reflux: Yes - Genitourinary/Gynecological Hx Genitourinary Disorders: No - Psychiatric Hx Psychophysiologic Disorder: No Hx Substance Use: No - Anesthesia Hx Anesthesia Reactions: No Hx Malignant Hyperthermia: No Family/Social History - Physician Review Nursing Documentation Reviewed: Yes Family/Social History: No Known Family HX Smoking Status: Heavy Smoker > 10 Cigarettes Daily Hx Alcohol Use: Yes (occ) Hx Substance Use: No Allergies/Home Meds Allergies/Adverse Reactions: Allergies No Known Allergies Allergy (Verified 02/05/18 19:02) Review of Systems - Physician Review All systems were reviewed & negative as marked: Yes - Review of Systems Constitutional: absent: Fevers Respiratory: absent: SOB Physical Exam - Physical Exam Narrative Physical Exam (Text): 06/08/18 18:03 Constitutional: No acute distress. Head: Normocephalic. Atraumatic. Eyes: PERRL. ENT: Moist mucous membranes. Neck: Supple. Cardiovascular: Regular rate. Chest: No tenderness. Respiratory: Clear to auscultation bilaterally. GI: Soft. Nontender. Nondistended. Back: No CVA tenderness. Musculoskeletal: No tenderness or swelling of extremities. Skin: induration, erythematous, blanching lesions on right lower back. Similar lesions on left anterior leg with some open excoriation. Neurologic: Alert, no focal deficit. Vital Signs Reviewed: Yes Vital Signs Temp Pulse Resp BP 06/08/18 17:45 98.7 F 88 20 136/84 Temperature: Afebrile Blood Pressure: Normal Pulse: Regular Respiratory Rate: Normal (Normal respiratory rate, triage vital reading in error ) Medical Decision Making ED Course and Treatment: 06/08/18 18:06 Impression: Patient is a 53 year old male who is complaining of a rash on the right lower back and left lower extremity with associated pruritus, that started yesterday. Differential Diagnosis included but are not limited to: Bug bite. Plan: -- Discharge patient with prescription for Augmentin. Prior Visits: Notes and results from previous visits were reviewed. Progress Notes: 06/08/18 18:06 Patient is in no acute distress. Patient instructed to take Antibiotics and Benadryl. Patient also instructed to return to Emergency department if his lesions increase in size, spread anteriorly to his abdomen, or he develops a fever. Patient given prescription for Augmentin and is stable for discharge. - Scribe Statement The provider has reviewed the documentation as recorded by the Zunilda Crockett Provider Scribe Attestation: All medical record entries made by the Scribines were at my direction and personally dictated by me. I have reviewed the chart and agree that the record accurately reflects my personal performance of the history, physical exam, medical decision making, and the department course for this patient. I have also personally directed, reviewed, and agree with the discharge instructions and disposition. Disposition/Present on Arrival - Present on Arrival Any Indicators Present on Arrival: No History of DVT/PE: No History of Uncontrolled Diabetes: No Urinary Catheter: No History of Decub. Ulcer: No History Surgical Site Infection Following: None - Disposition Have Diagnosis and Disposition been Completed?: Yes Diagnosis: Rash Disposition: HOME/ ROUTINE Disposition Time: 18:10 Patient Plan: Discharge Condition: STABLE Discharge Instructions (ExitCare): Insect Bites and Stings Prescriptions: Amoxicillin/Clavulanate [Augmentin 875 MG-125 MG] 1 tab PO BID #20 tab DiphenhydrAMINE [Benadryl] 2 cap PO Q8 #25 cap Referrals: [facility] [Outside] - Follow up with primary Kavita Ayala MD [Staff Provider] - Follow up with primary Forms: [facility] (Sami)
[2018-06-08 18:04] VITALS: RESP 20
== END 2018-06-08 18:05 | disposition home or self-care (01) ==
LOC: ED 17:18
DX: R21 Rash and other nonspecific skin eruption (principal)